=== PATIENT | male | born 1970 | race Caucasian/White ===

== ENCOUNTER 2018-06-01 16:25 | Inpatient (IN) | payer OTHER ==
[2018-06-01] MEDS: morphine 4 MG/ML VIAL IV ×2 (17:30→18:55)
[2018-06-01] MEDS: ONDANSETRON 4 MG INJ IV (17:30)
[2018-06-01 17:55] LABS: ADD MAN DIFF? NO
[2018-06-01 17:57] LABS: BASOPHILS % 0.2 % (0.0-2.0); EOSINOPHILS % 0.1 % (0.0-7.0); HEMATOCRIT 46.8 % (42.0-52.0); HEMOGLOBIN 16.1 g/dl (14.0-18.0); LYMPHOCYTES # 0.7 10^3/ul (0.8-2.9); LYMPHOCYTES % 7.1 % (15.0-51.0); MEAN CORPUSCULAR HEMOGLOBIN 29.8 pg (29.0-33.0); MEAN CORPUSCULAR HGB CONC 34.4 g/dl (32.0-37.0); MEAN CORPUSCULAR VOLUME 86.5 fl (82.0-101.0); MEAN PLATELET VOLUME 9.8 fl (7.4-10.4); MONOCYTE # 0.7 10^3/ul (0.3-0.9); MONOCYTES % 6.4 % (0.0-11.0); NEUTROPHIL # 8.8 10^3/ul (1.6-7.5); NEUTROPHILS % 85.6 % (39.0-77.0); PLATELET COUNT 216 10^3/UL (140-415); RED BLOOD COUNT 5.41 10^6/ul (4.70-6.10); RED CELL DISTRIBUTION WIDTH 12.4 % (11.5-14.5)
[2018-06-01 17:57] LABS: WHITE BLOOD COUNT 10.2 10^3/ul (4.8-10.8)
[2018-06-01 18:14] LABS: ALANINE AMINOTRANSFERASE 27 IU/L (13-69); ALBUMIN 3.5 g/dl (3.3-4.9); ALBUMIN/GLOBULIN RATIO 1.06; ALKALINE PHOSPHATASE 76 IU/L (42-121); ASPARTATE AMINO TRANSFERASE 19 IU/L (15-46); BILIRUBIN,INDIRECT 1.9 mg/dl (0-1.1); BILIRUBIN,TOTAL 1.9 mg/dl (0.2-1.3); BLOOD UREA NITROGEN 9 mg/dl (7-20); CALCIUM 9.4 mg/dl (8.4-10.2); CARBON DIOXIDE 30 mmol/L (21-31); CHLORIDE 97 mmol/L (97-110); CREATININE 0.87 mg/dl (0.61-1.24); GLUCOSE 123 mg/dl (70-220); LIPASE 40 U/L (23-300); SODIUM 136 mmol/L (135-144); TOTAL PROTEIN 6.8 g/dl (6.1-8.1)
[2018-06-01] MEDS ORDERED: LIDOCAINE 2% (SDV) 5 ML INJ (19:00)
[2018-06-01] MEDS ORDERED: DEXAMETHASONE 4 MG/ML 1 ML INJ (19:00)
[2018-06-01] MEDS ORDERED: DESFLURANE 15 MIN (19:00)
[2018-06-01] MEDS ORDERED: SUCCINYLCHOLINE CHLORIDE 100 MG/5 ML SYG IV (19:00)
[2018-06-01] MEDS ORDERED: ROCURONIUM BROMIDE 10 MG/ML VIAL (19:00)
[2018-06-01] MEDS: SOD CHLORIDE 0.9% 1,000 ML IV (19:00)
[2018-06-01] MEDS ORDERED: ONDANSETRON 4 MG INJ (19:00)
[2018-06-01] MEDS: SOD CHLORIDE 0.45% 1,000 ML IV (19:05)
[2018-06-01] MEDS ORDERED: FENTAnyl 50 MCG/ML VIAL (19:30)
[2018-06-01] MEDS ORDERED: PROPOFOL 20 ML (19:30)
[2018-06-01] MEDS ORDERED: MIDAZOLAM 1 MG/ML 2 ML INJ (19:30)
[2018-06-01] MEDS ORDERED: morphine 2 MG INJ IV (19:30)
[2018-06-01] MEDS ORDERED: METOCLOPRAMIDE 10 MG INJ (19:34)
[2018-06-01] MEDS ORDERED: MEPERIDINE 25 MG INJ IV (20:00)
[2018-06-01] MEDS ORDERED: FENTAnyl 50 MCG/ML VIAL IV ×2 (20:00)
[2018-06-01] MEDS ORDERED: HYDROmorphONE 1 MG/5 ML IV SYRINGE IV ×3 (20:00)
[2018-06-01] MEDS ORDERED: KETOROLAC 30 MG INJ IV (20:00)
[2018-06-01] MEDS ORDERED: ONDANSETRON 4 MG INJ IV (20:00)
[2018-06-01] MEDS ORDERED: DIPHENHYDRAMINE 50 MG INJ IV (20:00)
[2018-06-01] MEDS ORDERED: IPRATROPIUM (NEB) 0.5 MG/2.5 ML AMP HHN (20:00)
[2018-06-01] MEDS ORDERED: LEVALBUTEROL (NEB) 1.25 MG/0.5 ML AMP HHN (20:00)
[2018-06-01] MEDS: KETOROLAC 15 MG INJ IV (20:00)
[2018-06-01] MEDS: BUPIVACAINE 0.25% (MPF) 30 ML INJ (20:31)
[2018-06-01] MEDS: LIDOCAINE 1%/EPI 30 ML INJ (20:32)
[2018-06-01] MEDS ORDERED: ROPIVACAINE 0.5 % 30 ML VIAL (20:43)
[2018-06-01] MEDS ORDERED: SUGAMMADEX SODIUM 200 MG/2 ML VIAL IV (21:04)
[2018-06-01] MEDS ORDERED: LABETALOL HCL 20MG INJ (21:38)
[2018-06-01] MEDS: LABETALOL HCL 20MG INJ IV (21:41)
[2018-06-01] MEDS: PIPER-TAZO 3.375 GM IV (PMX) 100 ML IVPB (22:11)
[2018-06-02] MEDS ORDERED: PIPER-TAZO 3.375 GM IV (PMX) 100 ML IVPB
[2018-06-02] MEDS: D5-NS + KCL 20 MEQ 1,000 ML IV ×3 (00:34→14:09)
[2018-06-02] MEDS: KETOROLAC 15 MG INJ IV ×4 (01:16→20:29)
[2018-06-02] MEDS: ONDANSETRON 4 MG INJ IV ×3 (01:16→14:11)
[2018-06-02] MEDS: PIPER-TAZO 3.375 GM IV (PMX) 100 ML IVPB ×4 (04:44→21:36)
[2018-06-02] MEDS: SOD CHLORIDE 0.45% 1,000 ML IV ×2 (05:05→15:05)
[2018-06-02 05:37] LABS: WHITE BLOOD COUNT 7.2 10^3/ul (4.8-10.8)
[2018-06-02 05:37] LABS: ABNORMAL IP MESSAGE 1; HEMATOCRIT 49.8 % (42.0-52.0); HEMOGLOBIN 17.3 g/dl (14.0-18.0); MEAN CORPUSCULAR HEMOGLOBIN 29.8 pg (29.0-33.0); MEAN CORPUSCULAR HGB CONC 34.7 g/dl (32.0-37.0); MEAN CORPUSCULAR VOLUME 85.9 fl (82.0-101.0); MEAN PLATELET VOLUME 10.1 fl (7.4-10.4); PLATELET COUNT 188 10^3/UL (140-415); POSITIVE DIFF @See below; RED CELL DISTRIBUTION WIDTH 12.6 % (11.5-14.5)
[2018-06-02 05:59] LABS: HEMOGLOBIN A1C 4.8 % (0-5.9)
[2018-06-02 06:01] LABS: ALANINE AMINOTRANSFERASE 19 IU/L (13-69); ALBUMIN 3.5 g/dl (3.3-4.9); ALBUMIN/GLOBULIN RATIO 1.16; ALKALINE PHOSPHATASE 48 IU/L (42-121); ASPARTATE AMINO TRANSFERASE 18 IU/L (15-46); BILIRUBIN,INDIRECT 2.5 mg/dl (0-1.1); BILIRUBIN,TOTAL 2.5 mg/dl (0.2-1.3); BLOOD UREA NITROGEN 20 mg/dl (7-20); CALCIUM 9.5 mg/dl (8.4-10.2); CARBON DIOXIDE 24 mmol/L (21-31); CHLORIDE 102 mmol/L (97-110); CREATININE 1.09 mg/dl (0.61-1.24); GLUCOSE 121 mg/dl (70-220); POTASSIUM 4.5 mmol/L (3.5-5.1); SODIUM 136 mmol/L (135-144); TOTAL PROTEIN 6.5 g/dl (6.1-8.1)
[2018-06-02 06:03] LABS: ADD MAN DIFF? YES
[2018-06-02] MEDS: ENOXAPARIN 40 MG/0.4 ML SYG SC (06:34)
[2018-06-02 07:55] LABS: BAND NEUTROPHILS #M 4.6 10^3/ul (0.0-0.6); BAND NEUTROPHILS % (M) 65 % (0-4); BURR CELLS 1+ (0-0); GIANT THROMBO% (M) 4 % (0-0); LYMPHOCYTES #M 0.4 10^3/ul (0.8-2.9); LYMPHOCYTES % (M) 6 % (15-51); MONOCYTE #M 0.1 10^3/ul (0.3-0.9); MONOCYTES % (M) 2 % (0-11); PLATELET ESTIMATE NORMAL; POIKILOCYTOSIS 1+ (0-0); REACTIVE LYMPHOCYTES #M 0.5 10^3/ul (0.0-0.0); REACTIVE LYMPHOCYTES% (M) 8 % (0-0); SEG NEUT #M 1.7 10^3/ul (1.6-7.5); SEGMENTED NEUTROPHILS (M) % 19 % (39-77); SMUDGE%M 2 % (0-0); TOXIC GRANULATION 3+ (0-0)
[2018-06-02 09:16] LABS: ANION GAP 10 (5-13)
[2018-06-02 10:11] LABS: ANION GAP 9 (5-13)
[2018-06-02] MEDS: morphine 2 MG INJ IV ×5 (11:35→23:28)
[2018-06-03] MEDS: SOD CHLORIDE 0.45% 1,000 ML IV (01:05)
[2018-06-03] MEDS: D5-NS + KCL 20 MEQ 1,000 ML IV ×2 (01:24→11:34)
[2018-06-03] MEDS: KETOROLAC 15 MG INJ IV ×3 (01:25→13:12)
[2018-06-03] MEDS: morphine 2 MG INJ IV ×2 (04:02→06:25)
[2018-06-03] MEDS: PIPER-TAZO 3.375 GM IV (PMX) 100 ML IVPB ×4 (04:03→22:07)
[2018-06-03] MEDS: ENOXAPARIN 40 MG/0.4 ML SYG SC (06:34)
[2018-06-03] MEDS: HYDROCODONE/APAP (5/325) TAB PO ×2 (14:55→22:02)
[2018-06-03] MEDS: IBUPROFEN 600 MG TAB PO (17:59)
[2018-06-03] MEDS: ACETAMINOPHEN 325 MG TAB PO (20:24)
[2018-06-03] MEDS: ONDANSETRON 4 MG INJ IV (20:26)
[2018-06-03] MEDS: NACL 0.9% 3 ML SYG IV (22:05)
[2018-06-04] MEDS: NACL 0.9% 3 ML SYG IV (04:05)
[2018-06-04] MEDS: PIPER-TAZO 3.375 GM IV (PMX) 100 ML IVPB ×2 (04:11→09:39)
[2018-06-04] MEDS: IBUPROFEN 600 MG TAB PO (05:11)
[2018-06-04] MEDS: HYDROCODONE/APAP (5/325) TAB PO ×2 (06:46→13:55)
[2018-06-04] MEDS: ENOXAPARIN 40 MG/0.4 ML SYG SC (06:48)
== END 2018-06-04 15:45 | disposition home or self-care (01) | DRG 340 ==
LOC: MS1 06-02 00:01 → FTE 16:25 → REC 18:56
PROC: 0DTJ4ZZ Resection of Appendix, Percutaneous Endoscopic Approach (ICD-10-PCS; principal; 2018-06-01 19:45)
DX: K35.32 Acute appendicitis with perforation, localized peritonitis, and gangrene, without abscess (principal)
CPT/HCPCS: 36415; 74176; 80053; 83036; 83690; 85025; 88304; 96374; 96375; 96376; 99285-25